=== PATIENT | female | born 1985 | race Caucasian/White ===

== ENCOUNTER 2016-10-08 04:09 | Emergency (ER) | payer OTHER ==
[~2016-10-08] VITALS: Ht 154.9 cm; Wt 61.7 kg
[~2016-10-08 04:09] MED LIST: AC500T PO; DCS100C PO; FERR-57 PO; HYDR-3714 PO; IBUP-1773 PO; PREN-115 PO
--- NOTE | 2016-10-08 04:29 | ED GU-Female ---
General Chief Complaint: -Female Stated Complaint: POSS MISCARRIAGE Nursing Triage Note: PT REPORTS SHE HAD A POS PREG TEST AT HOME. BEGAN SPOTTING LAST NIGHT WITH HEAVIER BLEEDING UPON AWAKENING THIS MORNING. ALSO C/O CRAMPING ET PELVIC HEAVINESS. Nursing Sepsis Screen: No Definite Risk Source: patient, RN notes reviewed Exam Limitations: no limitations History of Present Illness Time seen by provider: 04:28 Initial Comments As above and below. Timing/Duration: this evening, getting worse Severity/Quality: mild, cramping Location: vaginal Radiation: none Activities at Onset: none Prior Genitourinary Problems: none Sexual [place] History: single partner Modifying Factors: Improves With Other (none) Associated Symptoms: abdominal pain Allergies and Home Medications Allergies Coded Allergies: latex (Unverified Adverse Reaction, Unknown, 10/08/16) Home Medications Vit #108/Iron/Fa 1 Each Tablet, 1 TAB PO DAILY, (Reported) Constitutional: see HPI Genitourinary: see HPI : Yes LMP: Sep 06, 2016 All Other Systemes Reviewed Negative Unless Noted: Yes Past Kumiprp-Nzljll-Tvjniw Hx Patient Social History Alcohol Use: Denies Use Recreational Drug Use: No Smoking Status: Never a Smoker Recent Foreign Travel: No Contact w/Someone Who Travel: No Recent Infectious Disease Expo: No Recent Hopitalizations: No Immunizations Up To Date Tetanus Booster (TDap): Less than 5yrs Date of Influenza Vaccine: Mar 18, 2016 Surgeries HX Surgeries: Yes (DENTAL) Surgeries: Adenoidectomy, Section, Tonsillectomy Respiratory Hx Respiratory Disorders: Yes Respiratory Disorders: Asthma Cardiovascular Hx Cardiac Disorders: Yes (TRICUSPID/MITRAL VALVE REGURG) Neurological Hx Neurological Disorders: No Reproductive System Hx : 3 Hx Para: 2 Hx Reproductive Disorders: No Sexually Transmitted Disease: No HIV/AIDS: No Genitourinary Hx Genitourinary Disorders: No Gastrointestinal Hx Gastrointestinal Disorders: Yes (SPASTIC COLON) Gastrointestinal Disorders: Irritable Bowel Musculoskeletal Hx Musculoskeletal Disorders: Yes (DEG MENISCAL DZ) Endocrine Hx Endocrine Disorders: No HEENT HX ENT Disorders: Yes (LASIK SURGERY) Loss of Vision: Denies Hearing Impairment: Denies Cancer Hx Cancer: No Psychosocial Hx Psychiatric Problems: Yes Behavioral Health Disorders: Anxiety, Depression Integumentary HX Skin/Integumentary Disorder: No Blood Transfusions Hx Blood Disorders: No Adverse Reaction to a Blood Tr: No Family Medical History Family Medial History: Cancer 09 BROTHER (KIDNEY ) FAM HX-PSYCHIATRIC COND 03 MOTHER Family history: Allergy 03 FATHER Family history: Asthma 09 BROTHER Family history: Cardiovascular disease 03 FATHER Family history: Hypertension 03 FATHER Family history: Osteoporosis 03 MOTHER Headache 03 MOTHER History of - anemia 03 MOTHER Hypercholesterolemia 03 FATHER Physical Exam Vital Signs Vital Sign - Last 12Hours 10/08/16 04:15 Temp 99.0 Pulse 89 Resp 16 B/P (MAP) 145/99 Capillary Refill : Less Than 3 Seconds General Appearance: WD/WN, no apparent distress Cardiovascular: regular rate, rhythm Respiratory: no respiratory distress Rectal: deferred Neurologic/Psychiatric: no motor/sensory deficits, alert, oriented x 3 Progress/Results/Core Measures Results/Orders Lab Results Laboratory Tests Test 10/08/16 04:24 10/08/16 04:35 Range/Units Urine Color YELLOW Urine Clarity CLEAR Urine pH 6 5-9 Urine Specific [place] 1.020 1.016-1.022 Urine Protein NEGATIVE NEGATIVE Urine Glucose (UA) NEGATIVE NEGATIVE Urine Ketones NEGATIVE NEGATIVE Urine Nitrite NEGATIVE NEGATIVE Urine Bilirubin NEGATIVE NEGATIVE Urine Urobilinogen NORMAL NORMAL MG/DL Urine Leukocyte Esterase NEGATIVE NEGATIVE Urine RBC (Auto) 4+ H NEGATIVE Urine RBC RARE /HPF Urine WBC RARE /HPF Urine Squamous Epithelial Cells 0-2 /HPF Urine Crystals NONE /LPF Urine Bacteria TRACE /HPF Urine Casts NONE /LPF Urine Mucus SMALL H /LPF Urine Culture Indicated NO Human Chorionic Gonadotropin, Quant 336 H <5 MIU/ML My Orders Orders - SRAVANTHI MIRANDA DO Hcg,Quantitative (10/08/16 04:27) Ua Culture If Indicated (10/08/16 04:27) Urine Bedside (10/08/16 04:30) Vital Signs/I&O Vital Sign - Last 12Hours 10/08/16 04:15 Temp 99.0 Pulse 89 Resp 16 B/P (MAP) 145/99 Blood Pressure Mean: 114 Progress Note : Progress Note With a HCG of only 339, nothing would show up on an US @ this time. Has an appointment c/ her OB on which would be a perfect time to recheck her HCG. Departure Impression Impression: Primary Impression: Threatened in early Disposition: 01 HOME, SELF-CARE Condition: Stable Departure-Patient Inst. Decision time for Depature: 05:19 Referrals: JOSÉ CAMACHO DO Patient Instructions: Threatened Miscarriage (DC) Add. Discharge Instructions: All discharge instructions reviewed with patient and/or family. Voiced understanding. KEEP YOUR CURRENTLY SCHEDULED OB APPOINTMENT FOR FRIDAY. SRAVANTHI MIRANDA DO Oct 08, 2016 04:29
[2016-10-08 04:39] LABS: BILIRUBIN,URINE NEGATIVE (NEGATIVE); KETONES,URINE NEGATIVE (NEGATIVE); LEUKOCYTE ESTERASE ,URINE NEGATIVE (NEGATIVE); NITRITE,URINE NEGATIVE (NEGATIVE); PROTEIN,URINE NEGATIVE (NEGATIVE); UROBILINOGEN,URINE NORMAL (NORMAL)
[2016-10-08 04:40] LABS: PH,URINE 6 (5-9)
[2016-10-08 04:41] LABS: WBC,URINE RARE /HPF
[2016-10-08 04:42] LABS: SQUAMOUS EPITHELIAL CELL,UR 0-2 /HPF
[2016-10-08 05:24] VITALS: BP 126/84
--- OUTSIDE RECORDS SUMMARY | 2016-11-10 12:48 | XMS REPORT | Continuity of Care Document ---
Author Author [facility] Organization [facility] Address Unknown Phone Unavailable Allergies Active Description Code Type Severity Reaction Onset Reported/Identified Relationship to Patient Clinical Status Yes No Known Drug Allergies [id number] Drug Allergy Unknown N/ A 03/12/2013 Yes latex [id number] Drug Allergy Unknown N/A 10/08/2016 Medications Problems Date Dx Coded Attending Type Code Diagnosis Diagnosed By 08/16/2014 MELINA STINSON DO Ot 719.46 09/02/2014 SHANTELL MELINA EMERSON Ot 719.46 01/12/2015 SHANTELL DOMELINA Ot 719.46 01/16/2015 SHATNELL MELINA EMERSON Ot 719.46 01/16/2015 SHANTELL MELINA EMERSON Ot 719.46 09/06/2015 SHANTELL DOMELINA Ot 719.46 06/25/2016 SHANTELL MELINA EMERSON Ot 719.46 JOINT PAIN-L/LEG 06/25/2016 JOSÉ CAMACHO DO Ot Z01.419 ENCNTR FOR ADVERTISING INTERN EXAM (GENERAL) (ROUTINE ) 08/23/2016 MELINA STINSON DO Ot 719.46 JOINT PAIN-L/LEG 08/23/2016 JOSÉ CAMACHO DO Ot Z01.419 ENCNTR FOR ADVERTISING INTERN EXAM (GENERAL) (ROUTINE ) 10/08/2016 MELINA STINSON DO Ot 719.46 JOINT PAIN-L/LEG 10/08/2016 JOSÉ CAMACHO DO Ot Z01.419 ENCNTR FOR ADVERTISING INTERN EXAM (GENERAL) (ROUTINE ) 10/08/2016 SRAVANTHI MIRANDA DO Ot O20.0 THREATENED 10/08/2016 SRAVANTHI MIRANDA DO Ot Z3A.01 LESS THAN 8 WEEKS GESTATION OF 10/08/2016 JOSÉ CAMACHO DO Ot Z01.419 ENCNTR FOR ADVERTISING INTERN EXAM (GENERAL) (ROUTINE ) 10/09/2016 SRAVANTHI MIRANDA DO Ot O20.0 THREATENED 10/09/2016 SRAVANTHI MIRANDA DO Ot Z3A.01 LESS THAN 8 WEEKS GESTATION OF 10/10/2016 JOSÉ CAMACHO DO Ot Z53.9 PROCEDURE AND TREATMENT NOT CARRIED OUT, Procedures Results Test Result Range Complete urinalysis with reflex to culture - 10/08/16 04:24 Urine color determination YELLOW NRG Urine clarity determination CLEAR NRG Urine pH measurement by test strip 6 5- 9 Specific gravity of urine by test strip 1.020 1.016-1.022 Urine protein assay by test strip, semi-quantitative NEGATIVE NEGATIVE Urine glucose detection by automated test strip NEGATIVE NEGATIVE Erythrocytes detection in urine sediment by light microscopy 4+ NEGATIVE Urine ketones detection by automated test strip NEGATIVE NEGATIVE Urine nitrite detection by test strip NEGATIVE NEGATIVE Urine total bilirubin detection by test strip NEGATIVE NEGATIVE Urine urobilinogen measurement by automated test strip (mass/volume) NORMAL NORMAL Urine leukocyte esterase detection by dipstick NEGATIVE NEGATIVE Automated urine sediment erythrocyte count by microscopy (number/high power field) RARE NRG Automated urine sediment leukocyte count by microscopy (number/high power field ) RARE NRG Bacteria detection in urine sediment by light microscopy TRACE NRG Squamous epithelial cells detection in urine sediment by light microscopy 0-2 NRG Crystals detection in urine sediment by light microscopy NONE NRG Casts detection in urine sediment by light microscopy NONE NRG Mucus detection in urine sediment by light microscopy SMALL NRG Complete urinalysis with reflex to culture NO NRG Serum or plasma choriogonadotropin measurement (units/volume) - 10/08/16 04:35 Serum or plasma choriogonadotropin measurement (units/volume) 336 m[iU]/mL <5 Encounters ACCT No. Visit Date/Time Discharge Status Pt. Type Provider Facility Loc./Unit Complaint [id number] 10/08/2016 04:11:00 2016 05:24:00 DIS Emergency SRAVANTHI MIRANDA DO [facility] ER POSS MISCARRIAGE [id number] 08/15/2014 14:28:00 2014 23:59:59 CLS Outpatient SHANTELL EMERSON MELINA Johnson [facility] RAD RT KNEE PAIN [id number] 04/07/2014 10:41:00 2013 23:59:59 CLS Outpatient [id number] 01/24/2014 09:46:00 2013 23:59:59 CLS Outpatient [id number] 08/20/2013 06:00:00 2013 11:50:00 DIS Inpatient [id number] 08/16/2013 08:16:00 2013 23:59:59 CLS Outpatient [id number] 06/01/2013 08:10:00 2012 23:59:59 CLS Outpatient [id number] 03/12/2013 21:45:00 2012 23:36:00 DIS Emergency [id number] 02/17/2013 13:39:00 2012 23:59:59 CLS Outpatient [id number] 12/21/2012 10:19:00 2012 23:59:59 CLS Outpatient [id number] 11/13/2012 10:03:00 2012 23:59:59 CLS Outpatient [id number] 10/09/2016 13:28:00 ACT Outpatient JOSÉ CAMACHO DO [facility] LABT [id number] 01/11/2016 07:43:00 ACT Outpatient JOSÉ CAMACHO DO [facility] LAB WELL WOMAN EXAM
== END 2016-10-08 05:24 | disposition home or self-care (01) ==
LOC: EDUNIT# 04:09 → ER 04:11
DX: O20.0 Threatened abortion (principal); Z3A.01 Less than 8 weeks gestation of pregnancy
CPT/HCPCS: 36415; 81000; 84702; 84703; 99282

== ENCOUNTER → 2016-10-09 | Outpatient (CLI) | payer OTHER | LOC: LABNPT 13:28 | PROVIDERS: ATTEND Obstetrics & Gynecology | DX: Z53.9 Procedure and treatment not carried out, unspecified reason (principal) ==

== ENCOUNTER → 2017-01-23 | Outpatient (CLI) | payer OTHER ==
[2017-01-23 07:21] LABS: BASOPHILS % (AUTO) 0 % (0-10); EOSINOPHILS # (AUTO) 0.1 10^3/uL (0.0-0.3); EOSINOPHILS % (AUTO) 1 % (0-10); LYMPHOCYTES % (AUTO) 39 % (12-44); MEAN CORPUSCULAR HEMOGLOBIN 30 PG (25-34); MEAN CORPUSCULAR HGB CONC 34 G/DL (32-36); MEAN CORPUSCULAR VOLUME 87 FL (80-99); MEAN PLATELET VOLUME 10.3 FL (7.4-10.4); MONOCYTES # (AUTO) 0.5 X 10^3 (0.0-1.0); MONOCYTES % (AUTO) 9 % (0-12); NEUTROPHILS # (AUTO) 2.6 X 10^3 (1.8-7.8); NEUTROPHILS % (AUTO) 50 % (42-75); PLATELET COUNT 240 10^3/uL (130-400); RED BLOOD COUNT 4.34 10^6/uL (4.35-5.85); RED CELL DISTRIBUTION WIDTH 11.8 % (10.0-14.5); WHITE BLOOD COUNT 5.2 10^3/uL (4.3-11.0)
[2017-01-23 07:46] LABS: ALANINE AMINOTRANSFERASE 62 U/L (0-55); ALBUMIN 4.3 GM/DL (3.2-4.5); ANION GAP 10 MMOL/L (5-14); ASPARTATE AMINO TRANSFERASE 34 U/L (5-34); BILIRUBIN,TOTAL 0.7 MG/DL (0.1-1.0); BLOOD UREA NITROGEN 20 MG/DL (7-18); BUN/CREATININE RATIO 25; CALCIUM 9.2 MG/DL (8.5-10.1); CARBON DIOXIDE 23 MMOL/L (21-32); CHLORIDE 104 MMOL/L (98-107); CHOLESTEROL 169 MG/DL (< 200); DIRECT LDL 105 MG/DL (1-129); GFR ESTIMATED > 60; GLUCOSE 86 MG/DL (70-105); POTASSIUM 4.3 MMOL/L (3.6-5.0); SODIUM 137 MMOL/L (135-145); TOTAL PROTEIN 7.1 GM/DL (6.4-8.2); TRIGLYCERIDES 55 MG/DL (<150); VLDL CHOLESTEROL 11 MG/DL (5-40)
[2017-01-23 08:06] LABS: THYROID STIMULATING HORMONE 1.64 UIU/ML (0.35-4.94)
== END ==
LOC: LAB 07:07
PROVIDERS: ATTEND Obstetrics & Gynecology
DX: Z13.1 Encounter for screening for diabetes mellitus (principal); Z13.220 Encounter for screening for lipoid disorders; R63.5 Abnormal weight gain
CPT/HCPCS: 36415; 80053; 80061; 83036; 84443; 85025

== ENCOUNTER → 2017-12-19 | Outpatient (CLI) | payer OTHER ==
--- NOTE | 2017-12-19 16:31 | Diagnostic Imaging Report ---
INDICATION: anatomy survey. TECHNIQUE: Multiple real-time grayscale images were obtained over the gravid uterus. COMPARISON: None FINDINGS: The cervix is closed and measures approximately 6 cm in length. Placenta is posteriorly located, and there is no evidence of previa. The fetus is in cephalic lie. The amount of amniotic fluid appears visually appropriate. Due to advanced gestational age, maternal adnexa are not well seen. anatomy survey was performed, and the following structures are visualized and normal: Cerebellum, cisterna magna, cerebral ventricles, stomach, four-chamber heart, bladder, spine, umbilical cord insertion, three-vessel cord, lips and nose, and all four extremities. Biometrical measurements are as follows: Biparietal 4.7 cm, age 20 weeks 2 days. Head circumference 17.67 cm, age 20 weeks 2 days. Abdominal circumference 16.22 cm, age 21 weeks 3 days. Femur length 3.54 cm, age 21 weeks 2 days. Sonographic estimate age: 20 weeks 6 days. Sonographic estimated date of delivery: 05/02/2018. Estimated Weight: 399 gm (+/- 58 gm). LMP percentile: 95%. heart rate: 143 beats per minute. number: 1 of 1. IMPRESSION: 1. Single live intrauterine with normal anatomy survey. Dictated by: Dictated on workstation # [id number]
== END ==
LOC: RAD 15:00
PROVIDERS: ATTEND Obstetrics & Gynecology
DX: Z36.89 Encounter for other specified antenatal screening (principal); Z3A.20 20 weeks gestation of pregnancy
CPT/HCPCS: 76805

== ENCOUNTER 2018-04-17 13:50 | Outpatient (CLI) | payer OTHER ==
[~2018-04-17] VITALS: Ht 154.9 cm; Wt 74.4 kg
[2018-04-17 13:55] VITALS: BP 140/90
[2018-04-17] MEDS ORDERED: D5 LR IV SOLUTION 500 ML IV ONE (14:30)
[2018-04-17] MEDS ORDERED: cefTRIAXone FOR IV USE 1,000 MG in NS (IVPB) 50 ML IV NR (14:30)
[2018-04-17 16:05] VITALS: BP 124/76
== END 2018-04-17 16:30 | disposition home or self-care (01) ==
LOC: LDRP 13:50 → WSo 13:50
PROVIDERS: ATTEND Obstetrics & Gynecology
DX: O47.03 False labor before 37 completed weeks of gestation, third trimester (principal); Z3A.36 36 weeks gestation of pregnancy
CPT/HCPCS: 96361; 96374; 99214

== ENCOUNTER 2018-04-27 09:12 | Outpatient (CLI) | payer OTHER ==
[~2018-04-27] VITALS: Ht 154.9 cm; Wt 75.3 kg
[2018-04-27] MEDS ORDERED: PREN-115 PO (09:24)
[2018-04-27] MEDS ORDERED: FAMO-119 PO (09:24)
== END 2018-04-27 09:30 | disposition home or self-care (01) ==
LOC: PREOP 09:12
PROVIDERS: ATTEND Obstetrics & Gynecology
DX: Z01.818 Encounter for other preprocedural examination (principal)
CPT/HCPCS: 87081

== ENCOUNTER 2018-05-01 07:30 | Inpatient (IN) | payer OTHER ==
[~2018-05-01] VITALS: Ht 154.9 cm; Wt 75.7 kg
[~2018-05-01 07:30] MED LIST changes: +FAMO-119 PO
[2018-05-04] MEDS ORDERED: METOCLOPRAMIDE INJ 10 MG/2 ML (REGLAN) ONE (05:42)
[2018-05-04] MEDS ORDERED: FAMOTIDINE 20MG/2ML IV (PEPCID) ONE (05:42)
[2018-05-04] MEDS ORDERED: CITRIC ACID/SOB CIT (BICITRA) 30 ML UDC ONE (05:42)
[2018-05-04] MEDS ORDERED: ceFAZolin 2 GM IV Premixed 50 ML ONE (05:42)
[2018-05-04 06:10] VITALS: BP 124/85
[2018-05-04] MEDS ORDERED: LACTATED RINGERS 1,000 ML IV SCH ×2 (06:10)
[2018-05-04] MEDS ORDERED: ceFAZolin 2 GM IV Premixed 50 ML IV ONE (06:15)
[2018-05-04] MEDS ORDERED: FAMOTIDINE 20MG/2ML IV (PEPCID) IV ONE (06:15)
[2018-05-04] MEDS ORDERED: CITRIC ACID/SOB CIT (BICITRA) 30 ML UDC PO ONE (06:15)
[2018-05-04] MEDS ORDERED: METOCLOPRAMIDE INJ 10 MG/2 ML (REGLAN) IV ONE (06:15)
[2018-05-04 06:40] LABS: BASOPHILS % (AUTO) 0 % (0-10); EOSINOPHILS # (AUTO) 0.1 10^3/uL (0.0-0.3); EOSINOPHILS % (AUTO) 1 % (0-10); HEMATOCRIT 35 % (35-52); HEMOGLOBIN 11.4 G/DL (11.5-16.0); LYMPHOCYTES # (AUTO) 2.4 X 10^3 (1.0-4.0); LYMPHOCYTES % (AUTO) 25 % (12-44); MEAN CORPUSCULAR HEMOGLOBIN 29 PG (25-34); MEAN CORPUSCULAR HGB CONC 33 G/DL (32-36); MEAN CORPUSCULAR VOLUME 87 FL (80-99); MEAN PLATELET VOLUME 11.5 FL (7.4-10.4); MONOCYTES % (AUTO) 11 % (0-12); NEUTROPHILS # (AUTO) 6.3 X 10^3 (1.8-7.8); NEUTROPHILS % (AUTO) 64 % (42-75); PLATELET COUNT 222 10^3/uL (130-400); RED BLOOD COUNT 3.97 10^6/uL (4.35-5.85); RED CELL DISTRIBUTION WIDTH 12.8 % (10.0-14.5); WHITE BLOOD COUNT 9.9 10^3/uL (4.3-11.0)
[2018-05-04] MEDS ORDERED: fentaNYL INJECTION 100 MCG/2 ML AMP ONE (06:57)
[2018-05-04] MEDS ORDERED: OXYTOCIN/NORMAL SALINE 500 ML IV SCH (07:20)
--- NOTE | 2018-05-04 07:24 | History & Physical-OB ---
OB - Chief Complaint & HPI Date/Time Date of Admission: Date of Admission: May 04, 2018 at 6:00 am Date seen by a Provider: May 04, 2018 Time Seen by a Provider: 07:10 Chief Complaint/History OB-Reason for Admission/Chief: Section Hx : 4 Hx Para: 2 Expected Date of Delivery: May 08, 2018 Gestational Age in Weeks: 39 Gestational Age in Days: 3 Indication for : desires repeat Admission Nurse Assessment Rev: Yes History of Labs O pos Antibody neg RI RPR NR HBsAg NR HIV NR GC neg GBS neg Allergies and Home Medications Allergies Coded Allergies: latex (Unverified Adverse Reaction, Unknown, 10/08/16) Home Medications Famotidine 20 Mg Tablet, 20 MG PO BID, (Reported) Vit #108/Iron/FA 1 Each Tablet, 1 EACH PO DAILY, (Reported) Patient Home Medication List Home Medication List Reviewed: Yes OB - History Hx of Present Care: Yes Ultrasounds: Normal mid trimester US Obstetrical Complications: None Medical Complications: None Obstetrical History Hx Termination: No Hx Multiple Gestation: No Hx Stillbirth: No Hx Complication: No Hx Induced Hypertens: No Hx Maternal Gestational Diabet: No Delivery History Hx Dystocia: No Hx Large For Gestational Age I: No Hx Small for Gestational Age I: No Hx Section: Yes Hx Vaginal Delivery Post C-Sec: No Hx Blood Disorders: No Adverse Rxn to Tranfusion: No Patient Past Medical History n/a Social History/Family History HIV/AIDS: No Recent Infectious Disease Expo: No Sexually Transmitted Disease: No Alcohol Use: Denies Use Recreational Drug Use: No Immunizations Tetanus Booster (TDap): Less than 5yrs Date of Influenza Vaccine: Apr 03, 2018 OB - Admission Exam Physical Exam Vitals: Vital Signs 05/04/18 06:10 Temp 97.9 Pulse 86 Resp 16 B/P (MAP) 124/85 (98) O2 Delivery Room Air HEENT: NCAT Heart: Rhythm Normal Lungs: Clear Abdomen: Gravid Extremities: Normal Reflexes: Normal Membranes: Intact Heart Rate: 150's Accelerations: Accelerations Present Decelerations: No Decelerations Short Term Variability: Present Halfway Variability: Average (6-25) Contractions on Admission: >10 Minutes Apart Intensity: Mild Labs Laboratory Tests Test 05/04/18 06:25 Range/Units White Blood Count 9.9 4.3-11.0 10^3/uL Red Blood Count 3.97 L 4.35-5.85 10^6/uL Hemoglobin 11.4 L 11.5-16.0 G/DL Hematocrit 35 35-52 % Mean Corpuscular Volume 87 80-99 FL Mean Corpuscular Hemoglobin 29 25-34 PG Mean Corpuscular Hemoglobin Concent 33 32-36 G/DL Red Cell Distribution Width 12.8 10.0-14.5 % Platelet Count 222 130-400 10^3/uL Mean Platelet Volume 11.5 H 7.4-10.4 FL Neutrophils (%) (Auto) 64 42-75 % Lymphocytes (%) (Auto) 25 12-44 % Monocytes (%) (Auto) 11 0-12 % Eosinophils (%) (Auto) 1 0-10 % Basophils (%) (Auto) 0 0-10 % Neutrophils # (Auto) 6.3 1.8-7.8 X 10^3 Lymphocytes # (Auto) 2.4 1.0-4.0 X 10^3 Monocytes # (Auto) 1.0 0.0-1.0 X 10^3 Eosinophils # (Auto) 0.1 0.0-0.3 10^3/uL Basophils # (Auto) 0.0 0.0-0.1 10^3/uL OB - Assessment/Plan/Diagnosis Assessment Assessment: section Admission Dx 32 yo @ 39 weeks RLTCS Family history of ovarian ca Admission Status: Inpatient Order (span 2 midnights) Reason for Inpatient Admission: Repeat Plan Plan: Section JOSÉ CAMACHO DO May 04, 2018 7:24 am
[2018-05-04] MEDS ORDERED: DOCU100C37 PO (07:25)
[2018-05-04] MEDS ORDERED: ACHD5005 PO (07:25)
[2018-05-04] MEDS ORDERED: IBUP-844 PO (07:25)
--- NOTE | 2018-05-04 07:26 | Discharge Inst-Women's Service ---
Discharge Inst-Women's Serv Depart Medication/Instructions New, Converted or Re-Newed RX: RX on Chart Final Diagnosis POD 2 RLTCS w/ RRS Consults/Follow Up Additional Follow Up: Yes Orders/Referrals Dr. Abebe in 7-10 days and in 6 weeks Activity Activity: Activity as Tolerated Driving Instructions: No Driving for 1 Week NO SMOKING: NO SMOKING Nothing Inside Vagina: No Douching, No Rollins, No Tampons Diet Discharge Diet: No Restrictions Symptoms to Report to : Bleeding Excessive, Pain Increased, Fever Over 101 Degrees F, Vaginal Bleeding Increase, Questions/Concerns For Any Problems or Questions: Contact Your Physician Skin/Wound Care Infection Signs and Symptoms: Increased Redness, Foul Odor of Wound, Increased Drainage, Skin Itchy or Has a Rash, Increased Swelling, Temperature Above 101 F Operative Area Clean and Dry: Keep Incision Clean/Dry Stitches/[place]/Dermabond: Dermabond, Care of Stitches Bathing Instructions: JOSÉ Caceres DO May 04, 2018 7:26 am
[2018-05-04] MEDS ORDERED: ONDANSETRON 4 MG/2 ML (SDV) Z0FRAN IVP PRN (07:30)
[2018-05-04] MEDS ORDERED: HYDROmorphone 2 MG/ML VIAL (DILAUDID) IV PRN (07:30)
[2018-05-04] MEDS ORDERED: TETANUS,DIPTH,PERTUSS P/F (BOOSTRIX) 0.5 ML VIAL IM SCH (07:30)
[2018-05-04] MEDS ORDERED: MEASLES,MUMPS,RUBELLA 1 EA INJ SC SCH (07:30)
[2018-05-04] MEDS ORDERED: LIDOCAINE PF 2% 5 ML (XYLOCAINE) VIAL ONE (07:49)
[2018-05-04] MEDS ORDERED: BUPIVACAINE 0.5% 30 ML (SENSORCAINE) VIAL ONE (07:49)
[2018-05-04] MEDS ORDERED: ONDANSETRON 4 MG/2 ML (SDV) Z0FRAN ONE (07:49)
[2018-05-04] MEDS ORDERED: BUPIVACAINE SPINAL 0.75% (SENSORCAINE) 2 ML AMP ONE (07:49)
[2018-05-04] MEDS ORDERED: OXYTOCIN/NORMAL SALINE 500 ML IV ONE ×2 (08:35→08:43)
[2018-05-04] MEDS ORDERED: diphenhydrAMINE 50 MG/ML INJ (BENADRYL) ONE (08:42)
[2018-05-04] MEDS ORDERED: NALOXONE 0.4 MG/ML 1 ML (NARCAN) VIAL IV PRN (09:00)
[2018-05-04] MEDS ORDERED: ONDANSETRON 4 MG/2 ML (SDV) Z0FRAN IV PRN (09:00)
[2018-05-04] MEDS ORDERED: diphenhydrAMINE 50 MG/ML INJ (BENADRYL) IV PRN (09:00)
[2018-05-04] MEDS: KETOROLAC 30 MG/ML VIAL IVP SCH ×3 (10:20→22:04)
[2018-05-04 11:30] VITALS: BP 134/83
[2018-05-04] MEDS: HYDROcodone/APAP 5 MG/325 MG (LORTAB) TAB PO PRN ×3 (12:02→19:56)
--- NOTE | 2018-05-04 14:23 | OPERATIVE REPORT ---
DATE OF SERVICE: PREOPERATIVE DIAGNOSES: 1. A 32-year-old G4, P2 at 39 weeks and 2 days gestation. 2. Previous section x2. 3. Family history of ovarian cancer. POSTOPERATIVE DIAGNOSES: 1. A 32-year-old G4, P2 at 39 weeks and 2 days gestation. 2. Previous section x2. 3. Family history of ovarian cancer. PROCEDURE: Repeat low transverse section with bilateral risk reducing salpingectomy. SURGEON: Gene Camacho DO. ANESTHESIA: Spinal. ESTIMATED BLOOD LOSS: 500 mL. URINE OUTPUT: 100 mL clear at the end of the procedure. FLUIDS: 1500 mL lactated Ringer's solution. FINDINGS: A live female weighing 8 pounds 7 ounces, Apgars 7 and 9. Grossly normal appearing bilateral ovaries and fallopian tubes. SPECIMENS SENT: Bilateral fallopian tubes and placenta. INDICATION FOR PROCEDURE: This 32-year-old female patient was seen in my office for care. She had seen me throughout the entirety of her care. During her care, we discussed risk reducing salpingectomy due to a family history of ovarian cancer. We discussed that we should wait to do this until her childbearing is complete. At this point, she is happy with her family being complete. We discussed risk of throughout her care. All of her questions were answered as far as pre and postoperative expectations. We discussed the risk reducing salpingectomy and how it does not change the recovery timeframe nor any further concerns; however, she would lose long-term ability to conceive. After all of her questions were answered again in the preoperative area, consent was reviewed with the patient as well as risk and postoperative expectations. After all of her questions were answered, consent was obtained. The patient was taken to the operating room. OPERATIVE REPORT IN DETAIL: Once in the operating room, spinal analgesia was found to be adequate. She was placed in the supine position with a leftward tilt, prepped and draped in normal sterile fashion. A Pfannenstiel skin incision was then made through the previously existing scar using a knife after anesthesia was tested and timeout was performed. My incision was then taken down to the underlying fascia using Bovie cautery. Fascial incision was extended laterally using Bovie cautery. Superior aspect of the fascial incision was then grasped with Idris clamps, tented up and dissected off the underlying rectus muscles. The inferior aspect of the fascial incision was then grasped with Idris clamps, tented up and dissected off the underlying rectus muscles. The rectus muscles were then dissected down the midline using Baig scissors. We exposed the peritoneum, which I entered bluntly and extended using blunt traction. The Sam ring retractor was placed in the peritoneal incision, which offered excellent lateral sidewall retraction. I then proceeded with making a low transverse incision into the vesicouterine peritoneum and bluntly dissected off the lower uterine segment, creating a bladder flap and then proceeded myotomy until membranes were visualized, at which point I extended the uterine incision laterally and superiorly using bandage scissors. Amniotomy was performed using Allis clamp. Meconium stained fluid was noted at the time of rupture. The was found in vertex presentation. With gentle fundal pressure, the infant's head was elevated up to the incision where it was delivered. The nares and oropharynx were then bulb suctioned. Nuchal cord reduced x1. Anterior and posterior shoulders were delivered. was then brought to the operative field where the cord was doubly clamped and cut and infant was handed off to waiting nurses in attendance. Cord blood was collected. Three-vessel cord was intact. Placenta was delivered spontaneously thereafter. IV Pitocin was initiated to facilitate uterine contraction. Fundus became firmer with bimanual massage. The uterus was then exteriorized and cleared of all endometrial clots and debris. I then proceeded to close the uterine incision using 0 Vicryl suture in a running locked fashion. A second layer of imbricating 0 Monocryl was placed. Excellent hemostasis was noted after doing this. I then took my attention to the fallopian tubes where bilaterally I performed this dissection. During the proximal isthmic portion of the fallopian tube, I take a LigaSure impact and bipolar cauterized and transected using the LigaSure. I then took this down to mesosalpinx amputating the fallopian tube from its surrounding blood supply all the way down to the distal ampullary connection point. Once this was done, I performed this on the contralateral side and both of the tubes were sent for pathology specimen. There was no active bleeding noted from any of my dissection planes. I placed the uterus back within the pelvis and copiously irrigated the pelvis using normal saline. Once again, there was no active bleeding noted from any of my dissection planes. I then placed Interceed antiadhesive over my low transverse incision and proceeded with closing the peritoneum using 3-0 Vicryl suture in a running fashion. The rectus muscle was reapproximated using 3-0 Vicryl suture in interrupted fashion. The fascia was reapproximated using 0 Vicryl suture in running fashion. Subcutaneous tissue was reapproximated using 3-0 plain in interrupted subcutaneous stitch and skin reapproximated using 4-0 Monocryl in a running subcuticular. Dermabond was applied to the incision and sterile dressing with adhesive white tape. The patient tolerated the procedure well and sent to recovery area in stable condition. Lap and sponge counts were correct at the end of the procedure. Instrument counts were correct as well. Two grams of Ancef was given preoperatively for infection prophylaxis. Job ID: [id number] DocumentID: [id number] Dictated Date: 05/04/2018 08:34:22 Dinner Cook Date: 05/04/2018 14:22:33 Dictated By: GENE CAMACHO DO
[2018-05-04 16:00] VITALS: BP 127/78
[2018-05-04] MEDS: DOCUSATE SODIUM 100 MG (COLACE) CAP PO SCH ×2 (19:56→21:15)
[2018-05-04 20:00] VITALS: BP 122/69
[2018-05-04] MEDS: CATHETER FLUSH 10 ML SYR IV SCH (22:04)
[2018-05-04 23:50] VITALS: BP 123/78
[2018-05-05] MEDS: HYDROcodone/APAP 5 MG/325 MG (LORTAB) TAB PO PRN ×4 (02:27→20:44)
[2018-05-05] MEDS: CATHETER FLUSH 10 ML SYR IV SCH ×2 (02:36→04:04)
[2018-05-05] MEDS: KETOROLAC 30 MG/ML VIAL IVP SCH (04:03)
[2018-05-05 04:05] VITALS: BP 140/84
[2018-05-05 05:58] LABS: BASOPHILS % (AUTO) 0 % (0-10); EOSINOPHILS # (AUTO) 0.1 10^3/uL (0.0-0.3); EOSINOPHILS % (AUTO) 1 % (0-10); HEMATOCRIT 30 % (35-52); LYMPHOCYTES # (AUTO) 2.7 X 10^3 (1.0-4.0); LYMPHOCYTES % (AUTO) 22 % (12-44); MEAN CORPUSCULAR HEMOGLOBIN 29 PG (25-34); MEAN CORPUSCULAR HGB CONC 33 G/DL (32-36); MEAN CORPUSCULAR VOLUME 88 FL (80-99); MEAN PLATELET VOLUME 10.6 FL (7.4-10.4); MONOCYTES # (AUTO) 1.2 X 10^3 (0.0-1.0); MONOCYTES % (AUTO) 9 % (0-12); NEUTROPHILS # (AUTO) 8.3 X 10^3 (1.8-7.8); NEUTROPHILS % (AUTO) 68 % (42-75); PLATELET COUNT 191 10^3/uL (130-400); RED BLOOD COUNT 3.41 10^6/uL (4.35-5.85); RED CELL DISTRIBUTION WIDTH 12.8 % (10.0-14.5); WHITE BLOOD COUNT 12.3 10^3/uL (4.3-11.0)
[2018-05-05] MEDS: DOCUSATE SODIUM 100 MG (COLACE) CAP PO SCH ×2 (08:12→20:44)
[2018-05-05 08:16] VITALS: BP 136/86
--- NOTE | 2018-05-05 08:26 | Postpartum Progress Note ---
Note Note Day # 1 Subjective: Patient is without complaints. Ambulating, voiding. Tolerating a regular diet without nausea or vomiting. Normal lochia. Pain is well controlled with oral pain medications. Objective: Vital Sign - Last 24 Hours 05/04/18 05/04/18 05/04/18 05/04/18 11:30 16:00 20:00 23:50 Temp 98.2 98.8 98.9 98.9 Pulse 68 84 82 70 Resp 20 18 18 18 B/P (MAP) 134/83 (100) 127/78 (94) 122/69 (86) 123/78 (93) Pulse Ox 96 96 96 O2 Delivery Room Air Room Air 05/05/18 05/05/18 04:05 08:16 Temp 98.5 98.5 Pulse 88 89 Resp 18 20 B/P (MAP) 140/84 (102) 136/86 (103) Pulse Ox 96 96 Intake and Output 05/04/18 05/04/18 05/05/18 15:00 23:00 07:00 Intake Total 2170 ml 1700 ml Output Total 900 ml 1100 ml Balance 1270 ml 600 ml Physical Exam: General - Alert and oriented, no apparent distress Abdomen - Soft, appropriately tender to palpation, non-distended, fundus firm at umbilicus Extremities - no edema, negative Trevor's bilaterally Incision- c/d/i Assessment: POD 1 RLTCS w/ RRS Acute blood loss anemia Plan: Routine care. Encourage breast feeding. Encourage ambulation. Ferrous sulfate supplementation. Plan for discharge tomorrow Vitals - Labs Vital Signs - I&O Vital Signs Date Time Temp Pulse Resp B/P (MAP) Pulse Ox O2 Delivery O2 Flow Rate FiO2 05/05/18 08:16 98.5 89 20 136/86 (103) 96 05/05/18 04:05 98.5 88 18 140/84 (102) 96 05/04/18 23:50 98.9 70 18 123/78 (93) 96 05/04/18 20:00 98.9 82 18 122/69 (86) 96 05/04/18 16:00 98.8 84 18 127/78 (94) 96 Room Air 05/04/18 11:30 98.2 68 20 134/83 (100) Room Air I & O 05/05/18 07:00 Intake Total 3870 ml Output Total 2000 ml Balance 1870 ml Labs Laboratory Tests 05/05/18 05:50: White Blood Count 12.3H, Red Blood Count 3.41L, Hemoglobin 10.0L, Hematocrit 30L , Mean Corpuscular Volume 88, Mean Corpuscular Hemoglobin 29, Mean Corpuscular Hemoglobin Concent 33, Red Cell Distribution Width 12.8, Platelet Count 191, Mean Platelet Volume 10.6H, Neutrophils (%) (Auto) 68, Lymphocytes (%) (Auto) 22 , Monocytes (%) (Auto) 9, Eosinophils (%) (Auto) 1, Basophils (%) (Auto) 0, Neutrophils # (Auto) 8.3H, Lymphocytes # (Auto) 2.7, Monocytes # (Auto) 1.2H, Eosinophils # (Auto) 0.1, Basophils # (Auto) 0.0 JOSÉ CAMACHO DO May 05, 2018 8:26 am
[2018-05-05] MEDS: IBUPROFEN 600 MG (MOTRIN) TAB PO SCH ×3 (10:32→23:35)
[2018-05-05 14:10] VITALS: BP 129/79
[2018-05-05 20:45] VITALS: BP 122/65
[2018-05-05 23:45] VITALS: BP 129/72
[2018-05-06] MEDS: IBUPROFEN 600 MG (MOTRIN) TAB PO SCH ×2 (05:59→11:53)
[2018-05-06 06:00] VITALS: BP 129/78
[2018-05-06] MEDS: DOCUSATE SODIUM 100 MG (COLACE) CAP PO SCH (09:45)
[2018-05-06] MEDS: HYDROcodone/APAP 5 MG/325 MG (LORTAB) TAB PO PRN (09:47)
[2018-05-06 12:00] VITALS: BP 125/77
== END 2018-05-06 17:00 | disposition home or self-care (01) | DRG 784 ==
LOC: LDRP 05-04 06:00
PROVIDERS: ADMIT Obstetrics & Gynecology; ATTEND Obstetrics & Gynecology
PROC: 0UT70ZZ Resection of Bilateral Fallopian Tubes, Open Approach (ICD-10-PCS; 2018-05-04)
PROC: 10D00Z1 Extraction of Products of Conception, Low, Open Approach (ICD-10-PCS; principal; 2018-05-04 07:19)
DX: O34.211 Maternal care for low transverse scar from previous cesarean delivery (principal); O69.81X0 Labor and delivery complicated by cord around neck, without compression, not applicable or unspecified; O90.81 Anemia of the puerperium; D62 Acute posthemorrhagic anemia; Z80.41 Family history of malignant neoplasm of ovary; Z37.0 Single live birth; Z3A.39 39 weeks gestation of pregnancy
CPT/HCPCS: 36415; 85025; 86850; 86900; 86901; 88302; 88307; 94664

== ENCOUNTER → 2020-10-12 | Outpatient (CLI) | payer OTHER ==
[~2020-10-12] MED LIST changes: +ACHD5005 PO; +DOCU100C37 PO; +IBUP-844 PO; +PRENATAL ONE T1 EAC1 PO
[2020-10-12 07:46] LABS: BASOPHILS % (AUTO) 1 % (0-10); EOSINOPHILS # (AUTO) 0.1 10^3/uL (0.0-0.3); EOSINOPHILS % (AUTO) 1 % (0-10); HEMATOCRIT 38 % (35-52); HEMOGLOBIN 12.8 g/dL (11.5-16.0); LYMPHOCYTES # (AUTO) 2.1 10^3/uL (1.0-4.0); LYMPHOCYTES % (AUTO) 27 % (12-44); MEAN CORPUSCULAR HEMOGLOBIN 31 pg (25-34); MEAN CORPUSCULAR HGB CONC 34 g/dL (32-36); MEAN CORPUSCULAR VOLUME 91 fL (80-99); MEAN PLATELET VOLUME 10.9 fL (9.0-12.2); MONOCYTES # (AUTO) 0.5 10^3/uL (0.0-1.0); MONOCYTES % (AUTO) 7 % (0-12); NEUTROPHILS # (AUTO) 4.8 10^3/uL (1.8-7.8); NEUTROPHILS % (AUTO) 64 % (42-75); PLATELET COUNT 264 10^3/uL (130-400); WHITE BLOOD COUNT 7.6 10^3/uL (4.3-11.0)
[2020-10-12 08:02] LABS: ALANINE AMINOTRANSFERASE 25 U/L (0-55); ALBUMIN 4.4 GM/DL (3.2-4.5); ALKALINE PHOSPHATASE 67 U/L (40-136); BILIRUBIN,TOTAL 0.5 MG/DL (0.1-1.0); BUN/CREATININE RATIO 11; CALCIUM 9.1 MG/DL (8.5-10.1); CARBON DIOXIDE 23 MMOL/L (21-32); CHLORIDE 105 MMOL/L (98-107); CHOLESTEROL 154 MG/DL (< 200); CREATININE SERUM 0.87 MG/DL (0.60-1.30); GFR ESTIMATED > 60; GLUCOSE 93 MG/DL (70-105); HDL CHOLESTEROL 61 MG/DL (40-60); POTASSIUM 4.1 MMOL/L (3.6-5.0); SODIUM 140 MMOL/L (135-145); TOTAL PROTEIN 7.1 GM/DL (6.4-8.2); TRIGLYCERIDES 74 MG/DL (<150); VLDL CHOLESTEROL 15 MG/DL (5-40)
[2020-10-12 08:23] LABS: FREE T4 (FREE THYROXINE) 1.06 NG/DL (0.70-1.48)
== END ==
LOC: LAB 07:22
PROVIDERS: ATTEND Family Medicine
DX: Z00.00 Encounter for general adult medical examination without abnormal findings (principal); R53.83 Other fatigue
CPT/HCPCS: 36415; 80053; 80061; 84439; 84443; 85025

== ENCOUNTER → 2020-11-17 | Outpatient (CLI) | payer OTHER ==
[2020-11-17 12:43] LABS: FREE T4 (FREE THYROXINE) 1.08 NG/DL (0.70-1.48)
== END ==
LOC: LAB 11:44
PROVIDERS: ATTEND Family Medicine
DX: E03.9 Hypothyroidism, unspecified (principal); R53.83 Other fatigue
CPT/HCPCS: 36415; 82670; 83001; 83002; 84144; 84439; 84443

== ENCOUNTER → 2021-11-27 | Outpatient (CLI) | payer OTHER ==
[2021-11-27 08:03] LABS: BASOPHILS % (AUTO) 1 % (0-10); EOSINOPHILS # (AUTO) 0.1 10^3/uL (0.0-0.3); EOSINOPHILS % (AUTO) 2 % (0-10); HEMATOCRIT 38 % (35-52); LYMPHOCYTES # (AUTO) 1.9 10^3/uL (1.0-4.0); LYMPHOCYTES % (AUTO) 28 % (12-44); MEAN CORPUSCULAR HEMOGLOBIN 31 pg (25-34); MEAN CORPUSCULAR HGB CONC 34 g/dL (32-36); MEAN CORPUSCULAR VOLUME 90 fL (80-99); MEAN PLATELET VOLUME 10.4 fL (9.0-12.2); MONOCYTES # (AUTO) 0.6 10^3/uL (0.0-1.0); MONOCYTES % (AUTO) 9 % (0-12); NEUTROPHILS # (AUTO) 4.2 10^3/uL (1.8-7.8); NEUTROPHILS % (AUTO) 61 % (42-75); PLATELET COUNT 261 10^3/uL (130-400); WHITE BLOOD COUNT 6.8 10^3/uL (4.3-11.0)
[2021-11-27 08:27] LABS: ALBUMIN 4.3 GM/DL (3.2-4.5)
[2021-11-27 08:28] LABS: CALCIUM 9.3 MG/DL (8.5-10.1)
[2021-11-27 08:31] LABS: BILIRUBIN,TOTAL 0.5 MG/DL (0.1-1.0)
[2021-11-27 08:33] LABS: CREATININE SERUM 0.88 MG/DL (0.60-1.30)
[2021-11-27 08:57] LABS: FREE T4 (FREE THYROXINE) 1.14 NG/DL (0.70-1.48)
== END ==
LOC: LAB 07:49
PROVIDERS: ATTEND Family Medicine
DX: Z00.00 Encounter for general adult medical examination without abnormal findings (principal); E03.8 Other specified hypothyroidism
CPT/HCPCS: 36415; 80053; 80061; 84439; 84443; 85025

== ENCOUNTER → 2022-04-01 | Outpatient (CLI) | payer OTHER ==
[2022-04-01 10:19] LABS: FREE T4 (FREE THYROXINE) 0.95 NG/DL (0.70-1.48)
== END ==
LOC: LAB 09:12
PROVIDERS: ATTEND Family Medicine
DX: E07.81 Sick-euthyroid syndrome (principal)
CPT/HCPCS: 36415; 82607; 83735; 84439; 84443